=== PATIENT | female | born 1935 | race Caucasian/White ===

== ENCOUNTER 2018-04-06 09:49 | Emergency (ER) | payer OTHER ==
[2018-04-06] MEDS: LIDOCAINE 1% (MPF) 5 ML VIAL INFIL (11:28)
[2018-04-06 13:17] LABS: SYN FLD MN % 6.7 &; SYN FLD PMN % 93.3 % (0.0-25.0)
[2018-04-06 13:26] LABS: SYN FLD SOURCE LEFT KNEE
[2018-04-06 13:26] LABS: SYN FLD CLARITY MILKY; SYN FLD COLOR YELLOW; SYN FLD WBC > 10000 /cmm (0-150)
[2018-04-06 13:29] LABS: SYN FLD CRYSTALS NO CRYSTALS SEEN (None seen)
== END 2018-04-06 12:47 | disposition home or self-care (01) ==
LOC: FTE 09:49
DX: M25.462 Effusion, left knee (principal); Z79.82 Long term (current) use of aspirin; Z79.84 Long term (current) use of oral hypoglycemic drugs
CPT/HCPCS: 20610; 73562; 89060; 99283-25